=== PATIENT | male | born 1975 | race African-American/Black ===

== ENCOUNTER 2017-12-17 14:09 | Emergency (ER) | payer OTHER ==
[~2017-12-17] VITALS: Ht 170.2 cm; Wt 68.0 kg
[~2017-12-17 14:09] MED LIST: HYDROCHLOROTH12.5 M1 PO; PREDNISONE 20 M20 MG PO; VENTOLIN HFA 1818 GM INH
[2017-12-17] MEDS ORDERED: ERYTHROMYCIN E3.5 G3 OPHTHALMIC (14:42)
[2017-12-17] MEDS ORDERED: HYDROCODONE-AP1 EAC6 PO (14:42)
[2017-12-17 14:56] VITALS: BP 168/106
== END 2017-12-17 14:56 | disposition home or self-care (01) ==
LOC: ER 14:09
DX: H16.002 Unspecified corneal ulcer, left eye (principal); J45.909 Unspecified asthma, uncomplicated

== ENCOUNTER 2018-07-21 04:33 | Emergency (ER) | payer OTHER ==
[~2018-07-21] VITALS: Ht 170.2 cm; Wt 72.6 kg
[~2018-07-21 04:33] MED LIST changes: +ERYTHROMYCIN E3.5 G3 OPHTHALMIC; +HYDROCODONE-AP1 EAC6 PO
[2018-07-21] MEDS ORDERED: VENTOLIN HFA 1818 GM INH (05:22)
[2018-07-21] MEDS ORDERED: PREDNISONE 20 M20 MG PO (05:22)
[2018-07-21] MEDS ORDERED: NORVASC5 MG PO (05:22)
[2018-07-21 05:44] VITALS: BP 177/98
== END 2018-07-21 05:46 | disposition home or self-care (01) ==
LOC: ER 04:33
DX: J45.901 Unspecified asthma with (acute) exacerbation (principal); I10 Essential (primary) hypertension